=== PATIENT | male | born 1960 | race African-American/Black ===

== ENCOUNTER 2019-06-20 00:19 | Inpatient (IN) | payer MEDICAID ==
[~2019-06-20] VITALS: Ht 185.4 cm; Wt 83.9 kg
[2019-06-20] MEDS ORDERED: SODIUM CHLORIDE 0.9% 1,000 ML IV ONE (01:26)
[2019-06-20] MEDS ORDERED: DIPHENHYDRAMINE 50MG/ML VIAL IV ONE (01:30)
[2019-06-20] MEDS ORDERED: VANCOMYCIN 1 G PREMIX 200 ML IV ONE (01:30)
[2019-06-20] MEDS ORDERED: METHYLPREDNISOLONE SOD SUCC 125 MG/2 ML VIAL IV ONE (01:30)
[2019-06-20] MEDS ORDERED: CLINDAMYCIN 600 MG in DEXTROSE 5% WATER 50 ML IV ONE (01:30)
[2019-06-20] MEDS ORDERED: CLINDAMYCIN 600 MG in SODIUM CHLORIDE 0.9% 50 ML IV NR (02:00)
[2019-06-20 02:05] LABS: BASOPHILS % 0.7 % (0.0-2.0); EOSINOPHILS % 7.3 % (0.0-5.0); HEMATOCRIT. 45.7 % (42.0-52.0); HEMOGLOBIN. 15.2 g/dL (14.0-18.0); LYMPHOCYTES % 23.6 % (20.0-50.0); MEAN CORPUSCULAR HEMOGLOBIN 29.8 pg (28.0-32.0); MEAN CORPUSCULAR VOLUME 89.5 fL (80.0-94.0); MEAN PLATELET VOLUME 8.6 fl (7.4-10.4); MONOCYTES % 13.6 % (2.0-8.0); NEUTROPHILS % 54.8 % (40.0-76.0); PLATELET 268 x1000/uL (130-400); RED CELL DISTRIBUTION WIDTH 14.1 % (11.6-14.6)
[2019-06-20 02:11] LABS: CHLORIDE 106 mEq/L (98-107)
[2019-06-20] MEDS ORDERED: IOHEXOL-300 100 ML BOTTLE ONE (03:27)
[2019-06-20] MEDS: MORPHINE SULFATE 2 MG/ML CPJ (NOT FOR IM USE) IV PRN ×3 (08:40→22:18)
[2019-06-20] MEDS ORDERED: DEXTROSE 50% WATER 50ML SYRINGE IV PRN (10:45)
[2019-06-20] MEDS ORDERED: ONDANSETRON HCL 4MG/2ML INJ IV PRN (10:45)
[2019-06-20] MEDS ORDERED: ACETAMINOPHEN 325MG TABLET PO PRN (10:45)
[2019-06-20 11:00] VITALS: BP_SYST 141; BP_SYST 163; BP_DIAS 105; BP_DIAS 59
[2019-06-20] MEDS: AMLODIPINE 5MG TABLET PO SCH ×2 (11:15→21:00)
[2019-06-20 12:00] VITALS: BP 161/110
[2019-06-20] MEDS: INSULIN LISPRO 100 UNITS/ML SUBCUT SCH ×3 (12:27→21:00)
[2019-06-20] MEDS: PIPERACILLIN/TAZOBACTAM 3.375 G in DEXT 5% WATER 100 ML IV SCH ×2 (12:27→18:10)
[2019-06-20] MEDS: BLOOD SUGAR DIAGNOSTIC STRIP TEST SCH ×3 (12:27→21:00)
[2019-06-20] MEDS: VANCOMYCIN 1500MG in DEXTROSE 5% WATER 250ML IV SCH ×2 (13:17→22:21)
[2019-06-20 14:00] VITALS: BP 179/118
[2019-06-20 18:00] VITALS: BP 166/118
[2019-06-20] MEDS: LOSARTAN POTASSIUM 100 MG TABLET PO SCH (18:14)
[2019-06-20] MEDS: CLONIDINE 0.1MG TABLET PO PRN (18:28)
[2019-06-20] MEDS ORDERED: CLONIDINE 0.1MG TABLET PO SCH (18:30)
[2019-06-20 19:24] LABS: CLARITY URINE CLEAR (CLEAR); COLOR URINE YELLOW (YELLOW); KETONES URINE NEGATIVE (NEGATIVE); LEUKOCYTE ESTERASE URINE NEGATIVE (NEGATIVE); NITRITE URINE NEGATIVE (NEGATIVE); OCCULT BLOOD URINE NEGATIVE (NEGATIVE); PROTEIN URINE NEGATIVE (NEGATIVE); SPECIFIC GRAVITY URINE 1.012 (1.005-1.030); UROBILINOGEN URINE 0.2 E.U./dL (0.2-1.0)
[2019-06-20 19:42] LABS: *AMPHETAMINES SCREEN URINE NEGATIVE (NEGATIVE); *BARBITURATES SCREEN URINE NEGATIVE (NEGATIVE); *BENZODIAZEPINES SCREEN URINE NEGATIVE (NEGATIVE); *COCAINE SCREEN URINE NEGATIVE (NEGATIVE)
[2019-06-20 19:43] LABS: CANNABINOID URINE SCREEN PRESUMTIVE POSITIVE (NEGATIVE); METHADONE URINE SCREEN NEGATIVE (NEGATIVE); OPIATES URINE SCREEN PRESUMTIVE POSITIVE (NEGATIVE); PHENCYCLIDINE URINE SCREEN NEGATIVE (NEGATIVE)
[2019-06-20 20:00] VITALS: BP 157/113
[2019-06-20 22:18] VITALS: BP 171/115
[2019-06-21] VITALS (7 sets, daily range): BP systolic 124–152; BP diastolic 87–105
[2019-06-21] MEDS: PIPERACILLIN/TAZOBACTAM 3.375 G in DEXT 5% WATER 100 ML IV SCH ×2 (00:36→04:51)
[2019-06-21] MEDS: HYDROCODONE/ACETAMINOPHEN 5/325MG TABLET PO PRN ×2 (04:50→15:58)
[2019-06-21] MEDS: INSULIN LISPRO 100 UNITS/ML SUBCUT SCH ×2 (08:00→12:01)
[2019-06-21] MEDS: BLOOD SUGAR DIAGNOSTIC STRIP TEST SCH ×2 (08:23→11:32)
[2019-06-21] MEDS: VANCOMYCIN 1500MG in DEXTROSE 5% WATER 250ML IV SCH (08:25)
[2019-06-21] MEDS: AMLODIPINE 5MG TABLET PO SCH (08:26)
[2019-06-21] MEDS: LOSARTAN POTASSIUM 100 MG TABLET PO SCH (08:26)
[2019-06-21] MEDS: MORPHINE SULFATE 2 MG/ML CPJ (NOT FOR IM USE) IV PRN (08:27)
[2019-06-21] MEDS ORDERED: DIPHENHYDRAMINE 50MG/ML VIAL IV PRN (09:00)
[2019-06-21 10:38] LABS: BASOPHILS % 0.4 % (0.0-2.0); EOSINOPHILS % 6.3 % (0.0-5.0); HEMATOCRIT. 45.1 % (42.0-52.0); HEMOGLOBIN. 15.1 g/dL (14.0-18.0); LYMPHOCYTES % 13.9 % (20.0-50.0); MEAN CORPUSCULAR HEMOGLOBIN 29.6 pg (28.0-32.0); MEAN CORPUSCULAR VOLUME 88.3 fL (80.0-94.0); MEAN PLATELET VOLUME 8.2 fl (7.4-10.4); MONOCYTES % 8.7 % (2.0-8.0); NEUTROPHILS % 70.7 % (40.0-76.0); PLATELET 272 x1000/uL (130-400); RED BLOOD CELL COUNT 5.11 mill/uL (4.7-6.1); RED CELL DISTRIBUTION WIDTH 13.5 % (11.6-14.6)
[2019-06-21 10:44] LABS: CHLORIDE 105 mEq/L (98-107)
[2019-06-21] MEDS ORDERED: HYDRALAZINE HCL 50MG TABLET PO SCH (11:00)
[2019-06-21] MEDS ORDERED: TRAM50TA3 MT (12:33)
[2019-06-21] MEDS ORDERED: AMLO10TA80 MT (13:27)
[2019-06-21] MEDS ORDERED: LOSA100T32 MT (13:27)
[2019-06-21] MEDS ORDERED: HYDR-4135 MT (13:27)
[2019-06-21] MEDS: CLONIDINE 0.1MG TABLET PO PRN (15:57)
[2019-06-21] MEDS ORDERED: MIRTAZAPINE 15MG TABLET PO SCH (21:00)
== END 2019-06-21 17:28 | disposition home or self-care (01) | DRG 383 ==
LOC: ER 00:30 → EDBEDREQTM 04:25 → EDBEDREQSVC 04:25 → EDBEDREQ 04:25 → 5EST 05:20 → EDBEDREQTM 05:21 → EDBEDREQ 05:21 → EDBEDREQSVC 05:21 → ENRESERV 09:34
PROVIDERS: ADMIT Internal Medicine; ATTEND Internal Medicine
DX: L03.211 Cellulitis of face (principal); L03.221 Cellulitis of neck; E11.9 Type 2 diabetes mellitus without complications; I10 Essential (primary) hypertension; F12.90 Cannabis use, unspecified, uncomplicated
CPT/HCPCS: 36415; 70487; 71045; 80048; 80202; 80305; 81003; 82962; 83036; 83605; 96365; 96366; 96368; 96375; 99291; J1200; J2270; J2543; J2930; J3370; J3490; J7030; J7060; Q9967